=== PATIENT | male | born 1990 | race Caucasian/White ===

== ENCOUNTER 2020-09-04 14:05 | Emergency (ER) | payer OTHER ==
[~2020-09-04 14:05] MED LIST: BENTYL 20MG TAB20 MG PO; XANAX 0.25 MG0.25 MG PO; ZOFRAN4 MG PO
[2020-09-04 14:47] LABS: HEMOGLOBIN 13.2 gm/dl (14.0-17.5); RED BLOOD COUNT 4.45 M/UL (4.20-5.50); WHITE BLOOD COUNT 4.1 K/UL (4.5-11.0)
[2020-09-04 15:35] LABS: BUN/CREATININE RATIO 12 (0-10)
== END 2020-09-04 20:20 | disposition home or self-care (01) ==
LOC: ER1 14:05
PROVIDERS: Physician Assistant
DX: R07.9 Chest pain, unspecified (principal); M79.602 Pain in left arm; F17.200 Nicotine dependence, unspecified, uncomplicated
CPT/HCPCS: 71045; 80053; 82550; 82553; 83874; 84484; 85025; 93005; 99284; 99285